=== PATIENT | male | born 1990 ===

== ENCOUNTER → 2019-11-26 | Day surgery (SDC) | payer OTHER ==
[~2019-11-26] VITALS: Ht 170.1 cm; Wt 80.7 kg
[~2019-11-26] MED LIST: OMEPPI 20 MG-11 EACH PO
[2019-11-26 11:10] VITALS: BP 131/79
[2019-11-26 12:08] VITALS: BP 102/46
[2019-11-26 12:25] VITALS: BP 115/54
[2019-11-26 12:40] VITALS: BP 117/77
== END | disposition home or self-care (01) ==
LOC: SDC 11-21 14:00
DX: K29.50 Unspecified chronic gastritis without bleeding (principal); Z88.8 Allergy status to other drugs, medicaments and biological substances; Z87.891 Personal history of nicotine dependence; Z72.89 Other problems related to lifestyle

== ENCOUNTER 2024-02-16 09:53 | Emergency (ER) | payer OTHER ==
[~2024-02-16] VITALS: Ht 170.1 cm; Wt 77.1 kg
[2024-02-16 10:39] LABS: BASO % 0.4 % (0.0-1.0); EOS # 0.1 10*3/uL (0.0-0.4); EOS % 1.7 % (1.0-4.0); HEMATOCRIT 45.2 % (42.0-52.0); LYMPH # 1.7 10*3/uL (1.3-4.4); LYMPH % 25.2 % (27.0-41.0); MEAN CELL VOLUME 91.5 fl (80.0-94.0); MEAN CORPUSCULAR HGB 31.8 pg (27.0-31.0); MEAN CORPUSCULAR HGB CONC 34.7 g/dl (33.0-37.0); MEAN PLATELET VOLUME 10.5 fl (9.6-12.3); MONO # 0.5 10*3/uL (0.1-1.0); MONO % 7.9 % (3.0-9.0); NEUT # 4.4 10*3/uL (2.3-7.9); NEUT % 64.4 % (47.0-73.0); PLATELET COUNT AUTOMATED 243 10*3/uL (130-400); RED BLOOD COUNT 4.94 10*6/uL (4.50-5.90); WHITE BLOOD COUNT 6.9 10*3/uL (4.8-10.8)
[2024-02-16 10:58] LABS: ALKALINE PHOSPHATASE 84 U/L (46-116); BUN 6 mg/dl (9-23); CHLORIDE 106 mmol/L (98-107); LIPASE 41 U/L (12-53); POTASSIUM 3.9 mmol/L (3.4-5.1); SGPT/ALT 24 U/L (5-49); TOTAL PROTEIN 7.3 gm/dL (6.0-8.0)
[2024-02-16] MEDS ORDERED: VIBRAMYCIN100 MG PO (11:37)
== END 2024-02-16 11:41 | disposition home or self-care (01) ==
LOC: ED 09:53
PROVIDERS: Internal Medicine
DX: M27.2 Inflammatory conditions of jaws (principal); L02.01 Cutaneous abscess of face; Z88.2 Allergy status to sulfonamides; Z88.8 Allergy status to other drugs, medicaments and biological substances; Z87.891 Personal history of nicotine dependence